=== PATIENT | female | born 2005 | race Caucasian/White ===

== ENCOUNTER 2024-12-11 13:07 | Outpatient (AMB) | payer MEDICAID, SELFPAY ==
--- NOTE | 2024-12-11 13:20 | OBCLNT_ITS ---
Vital Signs 12/11/24 13:21 Height 1.8 m Height Method Stated Weight 61.008 kg Weight Measurement Method Standing Scale BMI 18.7 BP 104/76 Blood Pressure Source Automatic Cuff Blood Pressure Location Left Upper Arm Position Sitting Respiration 16 Pulse 82 Pulse Source Monitor Temp 97.2 F Temp Source Oral Pulse Oximetry (%) 98 Oxygen Delivery Method Room Air Allergies/Home Meds Allergies & Medications Allergies No Known Allergies Allergy (Verified 12/11/24 13:22) Medication Reconciliation No Known Home Medications 12/11/24 [History Confirmed 12/11/24] Intake Visit Data Collection New Patient or Established: Established Patient (seen at [facility] within 3 years) Reason for Visit:: OBI Seen by Clinical Staff ONLY (RN/MA): No Loom Starter Required: No Do You Feel Safe at Home: Yes Authorities Contacted: N/A PCP or OBGYN visit in last 3 months: Yes Hx Now: Yes Are you currently on any form of Control: No Pain Present Currently: No Pain Scale Used: Mckenzie-Card/Numerical Pain scale:: 0 Smoking Status Smoking Status: Never smoker Questionnaires Covid-19 Vaccine Questionnaire Has patient been vacinated for Covid-19 Have you been vacinated for Covid-19: No PHQ-9 PHQ-2 Over the last 2 weeks, how often have you been bothered by any of the following problems? 1. Little interest or pleasure in doing things: not at all 2. Feeling down, depressed, or hopeless: not at all Total score: 0 PHQ-9 3. Trouble falling or staying asleep, or sleeping too much: Not at all 4. Feeling tired or having little energy: Not at all 5. Poor appetite or overeating: Not at all 6. Feeling bad about yourself - or that you are a failure or have let yourself or your family down: Not at all 7. Trouble concentrating on things, such as reading the newspaper or watching television: Not at all 8. Moving or speaking so slowly that other people could have noticed? - Or the opposite - being so fidgety or restless that you have been moving around a lot more than usual: not at all 9. Thoughts that you would be better off or of hurting yourself in some way: Not at all Total score: 0 If you checked off any problems, how difficult have these problems made it for you to do your work, take care of things at home, or get along with other people?: not difficult at all Source: Developed by Drs. Efra Wells, Sridevi Barrera, Mata Diaz and colleagues, with an educational andi from [employer]. 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 Partner José involved Tobacco History Smoking Status: Never smoker Second Hand Smoke Exposure: No Alcohol History Alcohol Intake: Former Alcohol Intake Frequency Other:: Patient states she drank a lot of alcohol beer and liquor prior to preg Substance Use History Substance Use: Patient has used marijuana last use 11/18/2024. Vapes nicotine Domestic Abuse History Do You Feel Safe at Home: Yes History of Present Illness HPI Narrative Patient is a 19-year-old G1, P0 presents for care. Her boyfriend José will be involved this OB Ultrasound Indication Indication: Size, dates, viability OB Ultrasound Ultrasound technique: transvaginal Gestational sac assessment: Presence, location, size, shape: Live intrauterine with crown-rump length of 3.37 cm and a gestational age of 10 weeks 2 days. EDC 07/04/2025 heart tones are noted at 143 bpm FINISHER BRUSH: Past Medical History Additional Operations/Hospitalizations (year & reason): No significant surgical history Other Relevant History: ADHD no current medications OB Initial Visit Menstrual History Menstrual reliability: definite Flow: normal Menstrual regularity: regular Monthly: Yes Age at menarche: 14 On control pills at conception: No Associated symptoms (LMP): Reports fatigue, breast tenderness and bloating OB History : 1 Para: 0 Hx # Pregnancies: 0 Hx Total # of Abortions (Spontaneous & Elective): 0 # of Living Children: 0 Infection History & Risk Evaluation History of STDs: none HIV risk evaluation: low risk Hepatitis B risk evaluation: low risk Patient or partner has history of Genital Herpes: No Varicella/chicken pox status: immunized Genetic Screening & History Genetic Screening/Teratology Counseling - Includes patient, baby's father, or anyone in either family with: 1. Patient's age 35 years or older as of estimated date of delivery: No 2. Thalassemia (Jamaican, Botswanan, Mediterranean, or Background); MCV less than 80: No 3. Neural Tube Defect (Meningomyelocele, Spina Bifida, or Anencephaly): No 4. Congenital Heart Defect: No 5. Down Syndrome: No 6. Tato-Sachs (Ashkenazi Jehovah'S Witness, Cajun, Hungarian [place]): No 7. Emelyn Disease (Ashkenazi Jehovah'S Witness): No 8. Familial Dysautonomia (Ashkenazi Jehovah'S Witness): No 9. Sickle Cell Disease or Trait (): No 10. Hemophilia or other blood disorders: No 11. Muscular Dystrophy: No 12. Cystic Fibrosis: No 13. Conejos's Chorea: No 14. Mental Retardation/Autism: No 15. Other inherited genetic or chromosomal disorder: No 16. Maternal Metabolic Disorder (EG,TYPE 1 Diabetes, PKU): No 17. Patient or baby's father had a child with defects not listed above: No 18. Recurrent loss or a stillbirth: No 19. Medications (including supplements, vitamins, herbs or otc drugs)/illicit/recreational drugs/alcohol since last menstrual period: Yes 20. Any other: Yes Comments/Counseling: Patient drank alcohol prior to finding out she was and use marijuana and vape nicotine type cartridges. Infection History 1. Live with someone with TB or exposed to TB: No 2. Rash or viral illness since last menstrual period: No 3. Hepatitis B,C: No Other (see comments) Source: [employer] Review of Systems Review of Systems Narrative Review of Systems: Mild nausea. No severe vomiting. Fatigue. Breast tenderness. Constitutional Constitutional: Reports fatigue Gastrointestinal Gastrointestinal: Reports bloating Endocrine Endocrine: Reports fatigue Exam General Limitations: no limitations General Appearance: alert, in no apparent distress, comfortable, cooperative, healthy appearing and well groomed Chest Chest inspection: Present normal inspection and symmetric chest wall rise Resp Respiratory exam: Present normal lung sounds bilaterally Card Cardiovascular exam: Present regular rate, normal rhythm and normal heart sounds Abdominal Abdominal exam: Present soft and normal bowel sounds Extremities Extremities exam: Present normal inspection and full ROM Psych Psychiatric exam: Present normal affect and normal mood Skin Skin exam: Present warm, dry, intact and normal color Office Procedures OB Clinic LOC & Office Proc's Nursing/Assessment Patient Status: Established Patient OB Clinic Nursing Assessment: Medication Reconciliation, Update PMH in EMR and Vital Signs OB Clinic Coordination of Care: Education Complex Pt/Fam, Consent,records obtained, informed consent, Lab and Imaging orders, Results/Orders obtained and Staff clarify orders Special Needs: Heart tones Established Patient Charge Established Patient Point Assignment: 115 Established Patient Point Charge: EP Level 3 (80-115) Assessment & Plan Diagnosis / Problem List (1) : Status: Acute Qualifiers: Weeks of gestation: 10 weeks Qualified Code(s): Z3A.10 - 10 weeks gestation of Plan: Ordered labs and official ultrasound. Patient is interested in NIPT cystic fibrosis and SMA screening. Follow-up in 4 weeks. Counseled about no alcohol use vaping or marijuana use in start vitamins.
[2024-12-11 13:21] VITALS: BP 104/76; PULSE 82; RESP 16; TEMP 36.2; O2SAT 98; BMI 18.7
== END 2024-12-11 13:51 | disposition home or self-care (01) ==
LOC: HODSOBC 13:07
PROVIDERS: Supervising Provider Obstetrics & Gynecology; Visit Provider Obstetrics & Gynecology
DX: O09.891 Supervision of other high risk pregnancies, first trimester (principal); O99.321 Drug use complicating pregnancy, first trimester; F12.90 Cannabis use, unspecified, uncomplicated; O99.331 Smoking (tobacco) complicating pregnancy, first trimester; F17.290 Nicotine dependence, other tobacco product, uncomplicated; Z3A.10 10 weeks gestation of pregnancy; Z71.51 Drug abuse counseling and surveillance of drug abuser
CPT/HCPCS: 99213; G0463

== ENCOUNTER 2025-01-20 10:55 | Outpatient (AMB) | payer MEDICAID, SELFPAY ==
[2025-01-20 11:35] VITALS: BP 94/57; PULSE 67; RESP 18; TEMP 36.2; O2SAT 98; BMI 19.2
--- NOTE | 2025-01-20 11:35 | AMB.OBVISIT ---
Vital Signs 01/20/25 11:35 Height 1.8 m Height Method Stated Weight 62.312 kg Weight Measurement Method Standing Scale BMI 19.2 BP 94/57 L Blood Pressure Source Automatic Cuff Blood Pressure Location Left Upper Arm Position Sitting Respiration 18 Pulse 67 Pulse Source Monitor Temp 97.2 F Temp Source Oral Pulse Oximetry (%) 98 Oxygen Delivery Method Room Air Allergies/Home Meds Allergies & Medications Allergies No Known Allergies Allergy (Verified 01/20/25 11:36) Medication Reconciliation No Known Home Medications 12/11/24 [History Confirmed 01/20/25] Intake Visit Data Collection New Patient or Established: Established Patient (seen at [facility] within 3 years) Reason for Visit:: OBC Seen by Clinical Staff ONLY (RN/MA): No Vice President Global Digital Marketing Required: No Do You Feel Safe at Home: Yes Authorities Contacted: N/A PCP or OBGYN visit in last 3 months: Yes Date of Last PCP or OBGYN visit: 12/11/24 Hx Now: Yes Are you currently on any form of Control: No Pain Present Currently: No Pain Scale Used: Mckenzie-Card/Numerical Pain scale:: 0 Smoking Status Smoking Status: Never smoker Immunizations Flu Vaccine in the Last 12 Months: No Flu Vaccine Exclusion Criteria: No Exclusion Criteria Questionnaires Covid-19 Vaccine Questionnaire Has patient been vacinated for Covid-19 Have you been vacinated for Covid-19: Yes PHQ-9 PHQ-2 Over the last 2 weeks, how often have you been bothered by any of the following problems? 1. Little interest or pleasure in doing things: not at all 2. Feeling down, depressed, or hopeless: not at all Total score: 0 PHQ-9 3. Trouble falling or staying asleep, or sleeping too much: Not at all 4. Feeling tired or having little energy: Not at all 5. Poor appetite or overeating: Not at all 6. Feeling bad about yourself - or that you are a failure or have let yourself or your family down: Not at all 7. Trouble concentrating on things, such as reading the newspaper or watching television: Not at all 8. Moving or speaking so slowly that other people could have noticed? - Or the opposite - being so fidgety or restless that you have been moving around a lot more than usual: not at all 9. Thoughts that you would be better off or of hurting yourself in some way: Not at all Total score: 0 If you checked off any problems, how difficult have these problems made it for you to do your work, take care of things at home, or get along with other people?: not difficult at all Source: Developed by Drs. Efra Wells, Sridevi Barrera, Mata Diaz and colleagues, with an educational andi from [employer]. 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 Partner José involved Tobacco History Smoking Status: Never smoker Second Hand Smoke Exposure: No Alcohol History Alcohol Intake: Former Alcohol Intake Frequency Other:: Patient states she drank a lot of alcohol beer and liquor prior to preg Substance Use History Substance Use: Patient has used marijuana last use 11/18/2024. Vapes nicotine Domestic Abuse History Do You Feel Safe at Home: Yes Care OB Visit Log OB Flowsheet Initial Weight: Not Recorded Date <del>?</del> EGA Weight BP Alb Glu CTX Pres Fundal ht FHR Mov Dilation Station Effacement Hx Notes Visit Note 01/20/25 <del>?</del> 15w 5d 62.312 kg 94/57 absent unknown 16 148 BENITO Calculator Estimated Delivery Date Method Current WG Current Estimate 07/09/25 Ultrasound #1 16w 1d Other Estimates 07/19/25 LMP (Uncertain) 14w 5d Notes Visit Date: 01/20/25 Last Updated by: Agnes Goldstein MD patient saw Dr Murguia last visit and did NIPT/ and also initial labs and she is B positive and genetic screen is negative Needs AFP next visit gender reveal card given follow up in 4 weeks Office Procedures OBC Clinic LOC & Office Proc's Nursing/Assessment Patient Status: Established Patient OB Clinic Nursing Assessment: Medication Reconciliation, Update PMH in EMR and Vital Signs OB Clinic Coordination of Care: Consent,records obtained, informed consent, Education Simp Pt/Fam, Results/Orders obtained and Staff clarify orders Special Needs: Heart tones Established Patient Charge Established Patient Point Assignment: 95 Established Patient Point Charge: EP Level 3 (80-115) Assessment & Plan Diagnosis / Problem List (1) : Status: Acute Qualifiers: Weeks of gestation: 10 weeks Qualified Code(s): Z3A.10 - 10 weeks gestation of Plan: Ordered labs and official ultrasound. Patient is interested in NIPT cystic fibrosis and SMA screening. Follow-up in 4 weeks. Counseled about no alcohol use vaping or marijuana use in start vitamins. Plan Assessment IUP at 15,5 weeks gestational age in a 19 years old G1 P 0 additional diagnoses none Plan labs AFP next visit refer for anatomy scan education/counselling on immunizations medications PNV immunization flu/ Tdap discussed Follow up 4 weeks Additional Plan see above Follow Up: 4
== END 2025-01-20 11:59 | disposition home or self-care (01) ==
PROVIDERS: Supervising Provider Obstetrics & Gynecology; Visit Provider Obstetrics & Gynecology
DX: Z34.02 Encounter for supervision of normal first pregnancy, second trimester (principal); Z3A.15 15 weeks gestation of pregnancy
CPT/HCPCS: 99213; G0463

== ENCOUNTER 2025-02-17 10:12 | Outpatient (AMB) | payer MEDICAID, SELFPAY ==
[2025-02-17 10:19] VITALS: BP 110/69; PULSE 75; RESP 14; TEMP 36.5; O2SAT 98
--- NOTE | 2025-02-17 10:19 | OBCLNT_ITS ---
Vital Signs 02/17/25 10:19 Height 1.8 m Height Method Stated Weight 64.864 kg Weight Measurement Method Standing Scale BMI 20.0 BP 110/69 Blood Pressure Source Automatic Cuff Blood Pressure Location Left Upper Arm Position Sitting Respiration 14 Pulse 75 Pulse Source Monitor Temp 97.7 F Temp Source Oral Pulse Oximetry (%) 98 Oxygen Delivery Method Room Air Allergies/Home Meds Allergies & Medications Allergies No Known Allergies Allergy (Verified 02/17/25 10:20) Medication Reconciliation No Known Home Medications 12/11/24 [History Confirmed 02/17/25] Immunizations Immunizations Flu Vaccine in the Last 12 Months: No Flu Vaccine Exclusion Criteria: Refused by Patient Care OB Visit Log OB Flowsheet Initial Weight: Not Recorded Date -?-?-?-?-?-?-?-?-?-?-?-?- EGA Weight BP Alb Glu CTX Pres Fundal ht FHR Mov Dilation Station Effacement Hx Notes Visit Note 01/20/25 -?-?-?-?-?-?-?-?-?-?-?-?- 15w 5d 62.312 kg 94/57 absent unknown 16 148 02/17/25 -?-?-?-?-?-?-?-?-?-?-?-?- 19w 5d 64.864 kg 110/69 absent unknown 20 149 declined flu vaccine BENITO Calculator Estimated Delivery Date Method Current WG Current Estimate 07/09/25 Ultrasound #1 19w 5d Other Estimates 07/19/25 LMP (Uncertain) 18w 2d Notes Visit Date: 02/17/25 Last Updated by: Agnes Goldstein MD needs MSAFP/ will refer for second trimester anatomy scan/ XY on NIPT Visit Date: 01/20/25 Last Updated by: Agnes Goldstein MD patient saw Dr Murguia last visit and did NIPT/ and also initial labs and she is B positive and genetic screen is negative Needs AFP next visit gender reveal card given follow up in 4 weeks Office Procedures OBC Clinic LOC & Office Proc's Nursing/Assessment Patient Status: Established Patient OB Clinic Nursing Assessment: Medication Reconciliation, Update PMH in EMR and Vital Signs OB Clinic Coordination of Care: Complex Care and Chronic Disease 1-5, Consent,records obtained, informed consent, Education Simp Pt/Fam, 1 Ins Authorization, Lab and Imaging orders, Results/Orders obtained and Staff clarify orders Special Needs: Heart tones Established Patient Charge Established Patient Point Assignment: 150 Established Patient Point Charge: EP Level 4 (120-155) Assessment & Plan Diagnosis / Problem List (1) screening encounter: Status: Acute Assessment and Plan: ordered MSAFP and ordered asecond trimester scan with MFM (2) : Status: Acute Qualifiers: Weeks of gestation: 10 weeks Qualified Code(s): Z3A.10 - 10 weeks gestation of Plan: 19.5 weeks , S=D / declined flu vaccine Additional Plan Follow Up: 4 Weeks
== END 2025-02-17 10:44 | disposition home or self-care (01) ==
LOC: HODSOBC 10:12
PROVIDERS: Supervising Provider Obstetrics & Gynecology; Visit Provider Obstetrics & Gynecology
DX: Z34.92 Encounter for supervision of normal pregnancy, unspecified, second trimester (principal); Z3A.19 19 weeks gestation of pregnancy; Z28.21 Immunization not carried out because of patient refusal
CPT/HCPCS: 99214; G0463